=== PATIENT | male | born 1990 | race Caucasian/White ===

== ENCOUNTER → 2018-03-09 | Emergency (ER) | payer OTHER | LOC: M.ERS 17:04 | DX: Z53.21 Procedure and treatment not carried out due to patient leaving prior to being seen by health care provider (principal) ==

== ENCOUNTER 2019-12-18 14:27 | Emergency (ER) | payer OTHER ==
[~2019-12-18] VITALS: Ht 172.7 cm; Wt 77.1 kg
[2019-12-18] MEDS ORDERED: TESSALON PERLE100 MG PO (15:17)
[2019-12-18 15:29] VITALS: BP 123/7
== END 2019-12-18 15:30 | disposition home or self-care (01) ==
LOC: M.ERS 14:27
DX: R05 Cough (principal); Z20.828 Contact with and (suspected) exposure to other viral communicable diseases